=== PATIENT | male | born 1960 | race Caucasian/White ===

== ENCOUNTER 2017-11-19 18:14 | Emergency (ER) | payer OTHER ==
[~2017-11-19] VITALS: Ht 177.8 cm; Wt 74.0 kg
[2017-11-19 18:24] VITALS: TEMP 36.9; Ht 177.8 cm; Wt 74.0 kg
--- NOTE | 2017-11-19 18:39 | EMERGENCY ROOM VISIT NOTE ---
History Report prepared by Jam: Mahin Arizmendi Under the Supervision of: Dr. Elias Quezada M.D. First contact with patient: 18:29 Chief Complaint: INFECTION Stated Complaint: RIGHT ELBOW LACERATION/PAIN History of Present Illness The patient is a 57 year old male who presents to the Emergency Room with complaints of pain in his right elbow that began earlier today. The patient states that he experienced a falling episode on Thursday, 4 days ago. The elbow swelled after the fall, and he noticed some discharge draining form the elbow on Thursday, 3 days ago. The drainage continued until yesterday. There has not been any drainage today. The patient's pain started today, which he describes as a "burning and stinging." He denies any fevers and he is not on any blood thinners. Source of History: patient Onset: Today Position: arm (right elbow) Quality: burning, other (tingling) Timing: other (fell 4 days ago, symptoms today) Associated Symptoms: No fevers Review of Systems See HPI for pertinent positives and negatives. A total of ten systems were reviewed and were otherwise negative. Past Medical & Surgical Hx of foreign body in arm. Social History Smoking Status: Never Smoker Occupation Status: employed Current/Historical Medications Scheduled Clindamycin Hcl (Cleocin), 300 MG PO TID Miscellaneous Medications Citalopram (Citalopram Hydrobromide) Minocycline Hcl (Minocycline Hcl) Allergies Coded Allergies: No Known Allergies (Unverified , 11/19/17) Physical Exam Vital Signs Date Time Temp Pulse Resp B/P (MAP) Pulse Ox O2 Delivery O2 Flow Rate FiO2 11/19/17 19:00 85 20 145/89 96 11/19/17 18:24 36.9 84 18 150/102 97 Room Air Physical Exam Physical Exam GENERAL: He is oriented to person, place, and time. He appears well-developed and well-nourished. He does not appear distressed. HENT: Exam performed. Head: Normocephalic and atraumatic. Right Ear: External ear normal. No mastoid tenderness. Left Ear: External ear normal. No mastoid tenderness. Mouth/Throat: The oropharynx is clear and moist. No trismus in the jaw. No dental abscesses or uvula swelling. No oropharyngeal exudate or tonsillar abscesses. EYES: Conjunctivae and EOM are normal. Pupils are equal, round, and reactive to light. Right eye exhibits no discharge. Left eye exhibits no discharge. No scleral icterus. NECK: Normal range of motion. Neck supple. No JVD present. No spinous process tenderness present. No carotid bruit present. No rigidity. No tracheal deviation and normal range of motion present. No Brudzinski's sign and no Kernig 's sign noted. CV: Normal rate, regular rhythm, normal heart sounds and intact distal pulses. There is no peripheral edema. Palpable radial pulses bue. PULM/CHEST: Effort normal and breath sounds normal. No respiratory distress. No stridor. He has no wheezes. He has no rales. Chest Wall: He exhibits no tenderness. ABD: The abdomen is soft. Bowel sounds are normal. He has no distension. No mass is present. There is no tenderness. There is no rebound, no guarding, no Finch's sign and no tenderness at McBurney's point. Rovsig negative. MUSC/SKEL: Normal range of motion. There is a small area of swelling to the right elbow over the olecranon, non-painful on palpation with overlying abrasion , no overlying erythema or edema, no fluctuance, Nikolsky negative. No pain with flexion/extension/pronation/supination of the RUE. No signs of septic arthritis or septic bursitis. LYMPH: No cervical adenopathy. NEURO: He is alert and oriented to person, place, and time. He has normal strength. No cranial nerve deficit or sensory deficit. Coordination and gait normal. GCS eye subscore is 4. GCS verbal subscore is 5. GCS motor subscore is 6. Cerebellar tests wnl. SKIN: Skin is warm and dry. He is not diaphoretic. PSYCH: He has a normal mood and affect. Behavior is normal. Judgment and thought content normal. Medical Decision & Procedures ER Provider Diagnostic Interpretation: Radiology results as stated below per my review and radiologist interpretation: R ELBOW MIN 3 VIEWS ROUTINE CLINICAL HISTORY: Right elbow pain status post trauma COMPARISON: None. DISCUSSION: The fat pads are not displaced. No acute fractures or dislocations are visualized. There are mild degenerative changes. There is mild soft tissue swelling. IMPRESSION: Mild degenerative change. No acute fractures or dislocations identified. Electronically signed by: Gabe Harden M.D. 11/19/2017 6:58 PM Dictated Date/Time: 11/19/2017 6:57 PM ED Course 1829: The patient was evaluated in room C5. A complete history and physical exam was performed. 192: Patient's vitals are stable, X-ray within normal limits. Bedisde US showed no fluid collection. There is no drainage from the abrasion, no concerns for septic arthritis or bursitis with full ROM present. At time of discharge the patient states that he and family at bedside feel uncomfortable being discharged home without antibiotics. He is refusing to leave without antibiotics due to his family telling him there is a chance of infection. I will write for prescription clindamycin for the patient. DISCHARGE - Plan of care discussed with patient and questions answered. The patient was given both verbal and printed discharge instructions. The patient verbalized understanding and ability to comply. The patient is to seek outpatient follow up as noted in the discharge instructions. The patient verbalized understanding and ability to comply. The patient is discharged in stable condition. The patient was instructed to return for worsening symptoms. Medical Decision Vital signs stable. Labs and imaging within normal limits. Given the patient' s HPI and physical exam findings, it is very low likelihood that the pain is cardiac in nature given that the pain is on the right side of her chest and is reproducible with her right upper extremity movement. Her pain is thought to be most likely to be musculoskeletal in nature. DISCHARGE - Plan of care discussed with patient and questions answered. The patient was given both verbal and printed discharge instructions. The patient verbalized understanding and ability to comply. The patient is to seek outpatient follow up as noted in the discharge instructions. The patient verbalized understanding and ability to comply. The patient is discharged in stable condition. The patient was instructed to return for worsening symptoms. Medication Reconcilliation Current Medication List: was personally reviewed by me Blood Pressure Screening Patient's blood pressure: Elevated blood pressure Blood pressure disposition: Elevated BP felt to be situational Impression Primary Impression: Bursitis Scribe Attestation The scribe's documentation has been prepared under my direction and personally reviewed by me in its entirety. I confirm that the note above accurately reflects all work, treatment, procedures, and medical decision making performed by me. The chart was completed utilizing [employer] voice recognition software. Grammatical errors, random word insertions, pronoun errors, and incomplete sentences are an occasional consequence of this system due to software limitations, ambient noise, and hardware issues. Any formal questions or concerns about the content, text, or information contained within the body of this dictation should be directly addressed to the physician for clarification. Departure Information Dispostion Home / Self-Care Prescriptions Clindamycin Hcl (CLEOCIN) 150 Mg Cap 300 MG PO TID for 7 Days, #42 CAP Prov: Elias Quezada M.D. 11/19/17 Referrals No Doctor, Assigned (PCP) Forms HOME CARE DOCUMENTATION FORM, IMPORTANT VISIT INFORMATION, WORK / SCHOOL INSTRUCTIONS Patient Instructions My [facility] Additional Instructions Return to the emergency department if you develop fever greater 100.4 or have pain with flexion and extension of your right elbow. Problem Qualifiers Primary Impression: Bursitis Bursitis location: elbow Elbow bursitis location: olecranon bursitis Laterality: right Qualified Codes: M70.21 - Olecranon bursitis, right elbow
[2017-11-19] MEDS ORDERED: MINO50TA (18:48)
[2017-11-19] MEDS ORDERED: CLX/20 (18:48)
[2017-11-19 19:00] VITALS: BP 145/89; PULSE 85; O2SAT 96
--- NOTE | 2017-11-19 19:00 | DIAGNOSTIC IMAGING REPORT ---
R ELBOW MIN 3 VIEWS ROUTINE CLINICAL HISTORY: Right elbow pain status post trauma COMPARISON: None. DISCUSSION: The fat pads are not displaced. No acute fractures or dislocations are visualized. There are mild degenerative changes. There is mild soft tissue swelling. IMPRESSION: Mild degenerative change. No acute fractures or dislocations identified. Electronically signed by: Gabe Harden M.D. 11/19/2017 6:58 PM Dictated Date/Time: 11/19/2017 6:57 PM
[2017-11-19] MEDS ORDERED: CLIN150C PO (19:41)
== END 2017-11-19 19:00 | disposition home or self-care (01) ==
LOC: C.EDB 18:16 → C.EDC 19:00
DX: M70.21 Olecranon bursitis, right elbow (principal)